=== PATIENT | female | born 1940 | race Caucasian/White ===

== ENCOUNTER 2025-06-04 10:02 | Emergency (ER) | payer MEDICARE, OTHER ==
[~2025-06-04] VITALS: Ht 165.1 cm; Wt 53.5 kg
[~2025-06-04 10:02] MED LIST: ALPRAZOLAM0.5 MG PO; ASPIRIN EC81 MG PO; BP MED; CHOLESTEROL MED; ESCITALOPRAM OX20 MG PO; LEVOTHYROXINE75 MCG PO; METOPROLOL SUC100 MG PO; PRAVASTATIN SOD40 MG PO; PROMETHAZINE12.5 M1 PO; SYNTHROID75 MCG PO; TIMOLOL MALEATE10 M1 OPTH; TRIAMTERENE-HC1 EAC1 PO
[2025-06-04] MEDS ORDERED: ETOMIDATE 40 MG/20 ML VIAL IV ONE (10:05)
[2025-06-04] MEDS ORDERED: ROCURONIUM BROMIDE 50 MG/5 ML SYR IV ONE (10:05)
[2025-06-04 10:26] LABS: MCH 28.4 PG (25.6-32.2); MCHC 30.9 g/dL (32.2-35.5); MCV 91.8 fL (79.4-94.8); RBC 5.39 M/uL (3.93-5.22)
[2025-06-04 10:47] LABS: ALT (SGPT) 14.0 U/L (14-59); AST (SGOT) 20.0 U/L (15-37); GLOMERULAR FILTRATION RATE,EST 50.0 mL/min (>60); PROTEIN, TOTAL 7.2 g/dL (6.4-8.2); UREA NITROGEN 14.0 mg/dL (7-18)
[2025-06-04 10:50] LABS: LYMPHOCYTES, MANUAL DIFF 59; MONOCYTES, MANUAL DIFF 4; NEUTROPHILS, MANUAL DIFF 37
[2025-06-04] MEDS ORDERED: MORPHINE SULFATE 4 MG/ML VIAL IV PRN (11:30)
== END 2025-06-04 12:30 ==
LOC: ED 10:02
PROVIDERS: Emergency Medicine
DX: R40.4 Transient alteration of awareness (principal); Z66 Do not resuscitate
CPT/HCPCS: 31500; 36415; 71045; 80053; 82803; 84484; 85025; 94799; 99291; J2704; J3490